=== PATIENT | female | born 1995 | race African-American/Black ===

== ENCOUNTER → 2017-10-15 | Day surgery (SDC) | payer OTHER ==
[~2017-10-15] MED LIST: HYDROmorphone 2 MG/ML VIAL IV; LIDOCAINE 1% PF 2 ML VIAL. ID; LIDOCAINE 2% PF Vial for OR 5 ML VIAL.; MORPHINE SULFATE 2 MG/ML DISP.SYRIN. IV; ONDANSETRON PF 4 MG/2 ML VIAL. IV; PROCHLORPERAZINE 10 MG/2 ML VIAL. IV; PROPOFOL 20 ML IV; fentaNYL PF VIAL 100 MCG/2 ML VIAL IV
[2017-10-15 12:16] LABS: NEG OBC UR NEG; POS OBC UR POS
[2017-10-15] MEDS: IV RINGERS,LACTATED 1000ML 1,000 ML IV (12:24)
== END | disposition home or self-care (01) ==
LOC: ENDOS 11:53
DX: K64.0 First degree hemorrhoids (principal); Z83.3 Family history of diabetes mellitus; Z79.899 Other long term (current) drug therapy; Z88.8 Allergy status to other drugs, medicaments and biological substances
CPT/HCPCS: 45378; 81025; J2704